=== PATIENT | female | born 1940 | race African-American/Black ===

== ENCOUNTER 2024-09-26 08:09 | Emergency (ER) | payer MEDICARE, OTHER ==
[~2024-09-26] VITALS: Ht 170.2 cm; Wt 77.0 kg
[2024-09-26 08:11] VITALS: O2SAT 99
[2024-09-26] MEDS: MORPHINE SULFATE 2 MG/ML INJ (NOT FOR IM USE) IV ONE (10:04)
[2024-09-26 10:23] LABS: HEMATOCRIT. 35.1 % (36.0-48.0); HEMOGLOBIN. 11.6 g/dL (12.0-16.0); MEAN CORPUSCULAR VOLUME 93.9 fL (81.0-99.0); MEAN PLATELET VOLUME 10.2 fl (7.4-10.4); PLATELET 171 x1000/uL (130-400); RED BLOOD CELL COUNT 3.74 mill/uL (4.2-5.4); RED CELL DISTRIBUTION WIDTH 13.3 % (11.6-14.6); WHITE BLOOD COUNT 5.4 x1000/uL (4.5-11.0)
[2024-09-26 10:29] LABS: CHLORIDE 104 mEq/L (98-107); POTASSIUM 3.7 mEq/L (3.5-5.1); SODIUM 136 mEq/L (136-145)
[2024-09-26 10:30] LABS: CALCIUM 9.1 mg/dL (8.7-10.4); CARBON DIOXIDE 24 mEq/L (21-32)
[2024-09-26 10:35] LABS: CREATININE 1.2 mg/dL (0.6-1.0); DIFFERENTIAL COMMENT 1; GLUCOSE 293 mg/dL (70-105); UREA NITROGEN BLOOD 15 mg/dL (9-23)
[2024-09-26 10:36] LABS: TROPONIN I HIGH SENSITIVITY 9 ng/L (3.0-34)
[2024-09-26 11:35] LABS: PLATELET ESTIMATE NORMAL
[2024-09-26] MEDS: AMLODIPINE 5MG TABLET PO NR (12:08)
[2024-09-26] MEDS: HYDRALAZINE 20MG/ML VIAL IV NR (12:11)
[2024-09-26 12:20] VITALS: BP 173/62; PULSE 78; RESP 12; TEMP 36.89184; O2SAT 97
== END 2024-09-26 12:12 | disposition short-term general hospital (02) ==
LOC: ER 08:09
DX: R07.89 Other chest pain (principal); E78.00 Pure hypercholesterolemia, unspecified; I10 Essential (primary) hypertension; E11.9 Type 2 diabetes mellitus without complications; J45.909 Unspecified asthma, uncomplicated
CPT/HCPCS: 80048; 83880; 85025; 84484; 36415; 71045; 93005; 96374; 96375; 99285; J0360; J2270; Z7610 ×3